=== PATIENT | female | born 1955 | race Caucasian/White ===

== ENCOUNTER 2018-01-30 17:36 | Emergency (ER) | payer BC ==
[2018-01-30 17:45] VITALS: BP 139/70
--- NOTE | 2018-01-30 18:25 | XRAY Report ---
Procedure Date: 01/30/2018 Accession Number: [id number] / [id number] Procedure: XR - Ribs w/PA Chest RT CPT Code: FULL RESULT: EXAM: RIGHT RIB RADIOGRAPHY EXAM DATE: 01/30/2018 06:10 PM. CLINICAL HISTORY: Fall, right rib pain. COMPARISON: None. TECHNIQUE: 1 view of the chest and 2 views of the ribs. FINDINGS: Bones: No displaced fracture. No suspicious focal osseous lesion. Degenerative changes noted through the thoracic spine. Lungs: No focal opacities. No pneumothorax. No pleural effusions. Mediastinum: Heart and mediastinal contours are unremarkable. Other: None. IMPRESSION: No displaced rib fracture or acute cardiopulmonary abnormality. RADIA
--- NOTE | 2018-01-30 18:43 | ED Physician Documentation ---
PD HPI TRUNK INJURY - Stated complaint Stated Complaint: R SIDE RIB INJURY - Chief complaint Chief Complaint: General - History obtained from History obtained from: Patient - History of Present Illness Location: Right chest Type of injury: Fall (from wall, about 8 feet, onto right chest with pain there. was doing some better and then lifted lightly today and felt abrupt worse again.) Timing - onset: How many days ago (4) Timing - duration: Days (4) Timing - details: Abrupt onset, Still present Quality: Pain, Sharp Improved by: Rest Worsened by: Moving, Palpating, Other (deep breathing) Associated symtptoms: No: Weakness, Numbness Similar symptoms before: Has not had sx before Recently seen: Not recently seen Review of Systems Constitutional: denies: Fever Nose: denies: Rhinorrhea / runny nose, Congestion Throat: denies: Sore throat Cardiac: reports: Chest pain / pressure. denies: Palpitations, Pedal edema, Calf pain Respiratory: denies: Cough, Wheezing GI: denies: Abdominal Pain, Nausea, Vomiting Neurologic: denies: Focal weakness, Numbness, Headache, Head injury PD PAST MEDICAL HISTORY - Past Medical History Past Medical History: No Respiratory: None - Past Surgical History Past Surgical History: No - Present Medications Home Medications: Ambulatory Orders Medication Instructions Recorded Confirmed Levothyroxine [Synthroid] 0 mg 01/30/18 Sertraline [Zoloft] 0 mg PO DAILY 01/30/18 01/30/18 - Allergies Allergies/Adverse Reactions: Allergies Allergy/AdvReac Type Severity Reaction Status Date / Time bacitracin Allergy Unknown Verified 01/30/18 17:45 [From Neosporin ([id number])] neomycin Allergy Unknown Verified 01/30/18 17:45 [From Neosporin ([id number])] polymyxin B Allergy Unknown Verified 01/30/18 17:45 [From Neosporin ([id number])] - Social History Does the pt smoke?: No Smoking Status: Never smoker Does the pt drink ETOH?: No Does the pt have substance abuse?: No - Immunizations Immunizations are current?: Yes - POLST Patient has POLST: No PD ED PE NORMAL - Vitals Vital signs reviewed: Yes - General General: Alert and oriented X 3, Well developed/nourished, Other (appears uncomfortable with guarded deep breathing. ) - HEENT HEENT: Atraumatic - Neck Neck: Supple, no meningeal sign, No bony TTP, No adenopathy - Cardiac Cardiac: RRR, No murmur - Respiratory Respiratory: Clear bilaterally, Other (chestwall tenderness lateral right without bruising, crepitance nor deformity. ) - Abdomen Abdomen: Soft, Non tender - Derm Derm: Normal color, Warm and dry - Extremities Extremities: No tenderness to palpate, Normal ROM s pain - Neuro Neuro: Alert and oriented X 3, No motor deficit, Normal speech Results - Vitals Vitals: Vital Signs - 24 hr 01/30/18 17:41 Temperature 36.4 C L Heart Rate 63 Respiratory 16 Rate Blood Pressure 139/70 H O2 Saturation 96 Oxygen O2 Source Room air - Rads (name of study) ribs with chest right Radiology: Prelim report reviewed (no lung injury, no visible rib fractures. ) PD MEDICAL DECISION MAKING - ED course Complexity details: considered differential, d/w patient (no visible fractures. There is some chance of occult fracture based on plain films. No displaced fractures nor lung injury. ) - Sepsis Event Vital Signs: Vital Signs - 24 hr 01/30/18 17:41 Temperature 36.4 C L Heart Rate 63 Respiratory 16 Rate Blood Pressure 139/70 H O2 Saturation 96 Oxygen O2 Source Room air Departure - Departure Disposition: 01 Home, Self Care Clinical Impression: Accidental fall Qualifiers: Encounter type: initial encounter Qualified Code(s): W19.XXXA - Unspecified fall, initial encounter Chest wall contusion Qualifiers: Encounter type: initial encounter Laterality: right Qualified Code(s): S20.211A - Contusion of right front wall of thorax, initial encounter Condition: Stable Record reviewed to determine appropriate education?: Yes Instructions: ED Contusion Chest Wall Follow-Up: Jazmine Feliciano MD [Primary Care Provider] - Comments: Ibuprofen or naproxen 2-3 tablets 3 times a day for the next week. You can add Tylenol to that if needed for pain. Activity as able. Recheck if not improved over the next week or so more. Discharge Date/Time: 01/30/18 19:25
== END 2018-01-30 19:25 | disposition home or self-care (01) ==
LOC: ED 17:36
DX: S20.211A Contusion of right front wall of thorax, initial encounter (principal); W17.89XA Other fall from one level to another, initial encounter
CPT/HCPCS: 99282; 99283